=== PATIENT | female | born 1995 | race Two or more races ===

== ENCOUNTER 2018-10-09 00:25 | Emergency (ER) | payer SELFPAY ==
[~2018-10-09] VITALS: Ht 167.6 cm; Wt 81.6 kg
--- NOTE | 2018-10-09 00:43 | NUR ---
ED Nurse Note: pt came to ed from home c/o cough x1 week, per pt she took zpack and it did not help, pt denies pain. pt shows no diffuclty breathing and aox4.
[2018-10-09 00:45] VITALS: BP 117/73
[2018-10-09] MEDS ORDERED: PROMETHAZI6.25 MG/1 ORAL (00:56)
[2018-10-09 01:04] VITALS: BP 117/73
--- NOTE | 2018-10-09 01:04 | NUR ---
ER DISCHARGE NOTE: Patient is cleared to be discharged per ERMD, pt is aox4, on room air, with stable vital signs. pt was given dc and prescription instructions, pt was able to verbalize understanding, pt id band removed. pt is able to ambulate with steady gait. pt took all belongings.
--- NOTE | 2018-10-09 01:09 | Emergency Room Report ---
History of Present Illness General Chief Complaint: Upper Respiratory Illness Source: Patient Present Illness HPI Patient present with complaints of a cough Reports that she was here about 2 weeks ago The medicine she was given did help however it was only written for 1 dose Patient however does not show on our system from previous Registration has checked with date of and other attempts of identification however this shows is her first visit Patient also reports that I was the one who saw her I do not recall seeing the patient and I do not usually prescribe 7 mL's of promethazine Nevertheless patient reports that she is here from [place] The cough has been off-and-on since then Denies any vomiting with the cough denies any sore throat denies any neck pain or photophobia Allergies: Coded Allergies: GUAIFENESIN (Verified Allergy, Unknown, 10/09/18) Patient History Past Medical History: see triage record Pertinent Family History: none Last Menstrual Period: One week ago Now: No Reviewed Nursing Documentation: PMH: Agreed; PSxH: Agreed Review of Systems All Other Systems: negative except mentioned in HPI Physical Exam Vital Signs Date Time Temp Pulse Resp B/P (MAP) Pulse Ox O2 Delivery O2 Flow Rate FiO2 10/09/18 00:35 98.1 88 16 117/73 97 Room Air Sp02 EP Interpretation: reviewed, normal General Appearance: well appearing, no apparent distress Head: normocephalic, atraumatic Eyes: bilateral eye PERRL, bilateral eye EOMI ENT: hearing grossly normal, normal pharynx, TMs + canals normal, uvula midline Neck: full range of motion, supple, no meningismus, no bony tend Respiratory: lungs clear, normal breath sounds, no rhonchi, no respiratory distress, no retraction, no accessory muscle use Cardiovascular #1: normal peripheral pulses, regular rate, rhythm, no edema, no gallop, no JVD, no murmur Gastrointestinal: normal bowel sounds, non tender, soft, no mass, no organomegaly, non-distended, no guarding, no hernia, no pulsatile mass, no rebound Genitourinary: no CVA tenderness Musculoskeletal: normal inspection Neurologic: oriented x3, responsive, slitter and rewinder III-XII nml as tested, motor strength/ tone normal, sensory intact Psychiatric: mood/affect normal Skin: normal color, no rash, warm/dry, palpation normal Lymphatic: normal inspection, no adenopathy Medical Decision Making Diagnostic Impression: Primary Impression: cough ER Course Patient has a dry cough at times Lung sounds are otherwise clear Other differentials include bronchitis pneumonia, fungal type infection Patient however saturating well respirations are appropriate Other attempts were made at attempting to locate the patient from previous visit however it is unsuccessful nevertheless patient is provided medications and requires close outpatient follow-up, Last Vital Signs Date Time Temp Pulse Resp B/P (MAP) Pulse Ox O2 Delivery O2 Flow Rate FiO2 10/09/18 01:04 98.1 88 16 117/73 97 Room Air Status: unchanged Disposition: HOME, SELF-CARE Condition: Stable Scripts Promethazine Hcl (PROMETHAZINE HCL*) 6.25 Mg/5 Ml Syrup 5 ML ORAL Q8H for 5 Days, #60 ML 0 Refills Prov: Garrett Riggins DO 10/09/18 Referrals: NOT CHOSEN IPA/MD,REFERRING (PCP) Patient Instructions: Cough, Adult, Rblk-he-Gape Additional Instructions: Patient is provided with the discharge instructions notified to follow up with primary doctor in the next 2-3 days otherwise return to the er with any worsening symptoms. Please note that this report is being documented using [employer] technology. This can lead to erroneous entry secondary to incorrect interpretation by the dictating instrument. Garrett Riggins DO Oct 09, 2018 01:09
== END 2018-10-09 01:04 | disposition home or self-care (01) ==
LOC: EMR 00:53
DX: R05 Cough (principal); Z88.8 Allergy status to other drugs, medicaments and biological substances
CPT/HCPCS: 99282